=== PATIENT | female | born 1940 | race Caucasian/White ===

== ENCOUNTER 2020-02-01 18:29 | Inpatient (IN) ==
[2020-02-01] MEDS ORDERED: ONDANSETRON 4 MG/2 ML VIAL IV ONE (19:40)
[2020-02-01] MEDS ORDERED: MORPHINE 4 MG/1 ML VIAL IV ONE (19:40)
[2020-02-01] MEDS ORDERED: ONDANSETRON 4 MG/2 ML VIAL ONE (19:43)
[2020-02-01] MEDS ORDERED: MORPHINE 4 MG/1 ML VIAL ONE (19:44)
[2020-02-01 21:11] LABS: Basophils % 0.2 % (0.0-0.8); Eosinophils # 0.1 10*3/uL (0.0-0.87); Eosinophils % 0.6 % (0.00-10.9); Immature Granulocytes % 0.6 %; Immature Granulocytes Absolute 0.05 #; Lymphocytes # 0.7 10*3/uL (1.4-4.0); Lymphocytes % 8.2 % (21.3-54.2); Mean Corpuscular HGB Conc 34.4 GM/DL (32-36); Mean Platelet Volume 8.6 FL (9.6-12.0); Monocytes % 8.2 % (1.7-12.7); Neutrophils % 82.2 % (38.7-73.9); Platelet Count 172 T/CUMM (130-400); Red Blood Count 3.37 MC/CUMM (3.8-5.5); Red Cell Distribution Width 11.7 % (9.3-17.3); White Blood Count 8.3 T/CUMM (4-12)
[2020-02-01 21:22] LABS: PT Patient Result 10.6 SECS (9.8-11.9)
[2020-02-01 21:23] LABS: Calcium 8.8 MG/DL (8.5-10.1)
[2020-02-01] MEDS ORDERED: ACETAMINOPHEN 325 MG TABLET PO PRN (22:13)
[2020-02-01] MEDS ORDERED: ONDANSETRON 4 MG/2 ML VIAL IV PRN (22:13)
[2020-02-01] MEDS: DOCUSATE SODIUM 100 MG CAPSULE PO SCH (23:27)
[2020-02-01] MEDS: SODIUM CHLORIDE 0.45% 1,000 ML IV SCH (23:28)
[2020-02-02] MEDS: MORPHINE 4 MG/1 ML VIAL IV PRN ×2 (01:23→08:33)
[2020-02-02] MEDS: SODIUM CHLORIDE 0.45% 1,000 ML IV SCH (08:13)
[2020-02-02] MEDS ORDERED: propofoL 200 MG/20 ML VIAL IV ONE (09:43)
[2020-02-02] MEDS ORDERED: BUPIVACAINE SPINAL 0.75% 2 ML AMP SPINAL ONE (09:43)
[2020-02-02] MEDS ORDERED: KETAMINE 500 MG/10 ML VIAL ONE (09:43)
[2020-02-02] MEDS ORDERED: LIDOCAINE 2% 5 ML VIAL ONE (09:43)
[2020-02-02] MEDS ORDERED: HYDROmorphone 2 MG/1 ML VIAL ONE (09:47)
[2020-02-02] MEDS ORDERED: ceFAZolin 1,000 MG in SYRINGE 1 EACH IV ONE (10:00)
[2020-02-02] MEDS ORDERED: BISACODYL 10 MG SUPP RECTAL PRN (10:21)
[2020-02-02] MEDS ORDERED: MAGNESIUM HYDROXIDE SUSP 30 ML UDCUP PO PRN (10:21)
[2020-02-02] MEDS ORDERED: LACTULOSE 20 GM/30 ML UDCUP PO PRN (10:21)
[2020-02-02] MEDS ORDERED: diphenhydrAMINE CAP 25 MG CAPSULE PO PRN (10:21)
[2020-02-02] MEDS ORDERED: MORPHINE 4 MG/1 ML VIAL IV PRN ×2 (10:23→10:39)
[2020-02-02] MEDS ORDERED: LACTATED RINGERS 1,000 ML IV ONE (10:48)
[2020-02-02] MEDS ORDERED: DEXAMETHASONE 4 MG/1 ML VIAL ONE (10:48)
[2020-02-02] MEDS ORDERED: ONDANSETRON 4 MG/2 ML VIAL ONE (10:48)
[2020-02-02] MEDS ORDERED: TUBERCULIN SKIN TEST 0.1 ML SYRINGE INTRADERM ONE (14:36)
[2020-02-02] MEDS: PANTOPRAZOLE 40 MG TABLET PO SCH (15:00)
[2020-02-02] MEDS: DOCUSATE SODIUM 100 MG CAPSULE PO SCH ×2 (15:00→20:23)
[2020-02-02] MEDS: LACTATED RINGERS 1,000 ML IV SCH (15:00)
[2020-02-02] MEDS: ceFAZolin 1,000 MG in SYRINGE 1 EACH IV SCH ×2 (16:58→23:52)
[2020-02-03] MEDS: FONDAPARINUX 2.5 MG/0.5 ML SYRINGE SUBCUT SCH (05:20)
[2020-02-03 06:20] LABS: Basophils % 0.1 % (0.0-0.8); Eosinophils # 0.2 10*3/uL (0.0-0.87); Hematocrit 27.7 VOL% (35.7-47.0); Hemoglobin 9.8 GM/DL (12.0-16.0); Immature Granulocytes % 0.4 %; Immature Granulocytes Absolute 0.03 #; Lymphocytes # 0.6 10*3/uL (1.4-4.0); Lymphocytes % 8.1 % (21.3-54.2); Mean Corpuscular HGB Conc 35.4 GM/DL (32-36); Monocytes % 8.1 % (1.7-12.7); Neutrophils % 81.3 % (38.7-73.9); Platelet Count 173 T/CUMM (130-400); Red Blood Count 2.98 MC/CUMM (3.8-5.5); Red Cell Distribution Width 11.4 % (9.3-17.3); White Blood Count 7.6 T/CUMM (4-12)
[2020-02-03 06:40] LABS: Calcium 8.2 MG/DL (8.5-10.1); Osmolality,Calculated 265.2 MOS/KG (273-304)
[2020-02-03] MEDS: LACTATED RINGERS 1,000 ML IV SCH (07:28)
[2020-02-03] MEDS: ceFAZolin 1,000 MG in SYRINGE 1 EACH IV SCH (09:04)
[2020-02-03] MEDS: DOCUSATE SODIUM 100 MG CAPSULE PO SCH ×2 (09:04→20:23)
[2020-02-03] MEDS: PANTOPRAZOLE 40 MG TABLET PO SCH (09:04)
[2020-02-04] MEDS: FONDAPARINUX 2.5 MG/0.5 ML SYRINGE SUBCUT SCH (06:07)
[2020-02-04 06:23] LABS: Basophils % 0.4 % (0.0-0.8); Eosinophils # 0.1 10*3/uL (0.0-0.87); Eosinophils % 1.7 % (0.00-10.9); Hematocrit 31.8 VOL% (35.7-47.0); Immature Granulocytes % 0.6 %; Immature Granulocytes Absolute 0.03 #; Lymphocytes # 0.5 10*3/uL (1.4-4.0); Lymphocytes % 9.9 % (21.3-54.2); Mean Corpuscular HGB Conc 34.6 GM/DL (32-36); Mean Corpuscular Volume 93.5 FL (87-102); Mean Platelet Volume 8.9 FL (9.6-12.0); Monocytes % 11.3 % (1.7-12.7); Neutrophils % 76.1 % (38.7-73.9); Platelet Count 169 T/CUMM (130-400); Red Cell Distribution Width 11.6 % (9.3-17.3); White Blood Count 4.8 T/CUMM (4-12)
[2020-02-04] MEDS: LACTATED RINGERS 1,000 ML IV SCH (07:39)
[2020-02-04] MEDS: PANTOPRAZOLE 40 MG TABLET PO SCH (09:24)
[2020-02-04] MEDS: DOCUSATE SODIUM 100 MG CAPSULE PO SCH (09:25)
[2020-02-04 12:59] VITALS: BP 115/65
== END 2020-02-04 12:58 | disposition swing bed (61) | DRG 482 ==
LOC: N.ED 18:29 → N.EDINP 20:24 → N.3E 20:46
PROVIDERS: ADMIT Family Medicine; ATTEND Family Medicine

== ENCOUNTER 2020-12-01 13:16 | Inpatient (IN) ==
[2020-12-01] MEDS ORDERED: ONDANSETRON 4 MG/2 ML VIAL IV STA (13:35)
[2020-12-01] MEDS ORDERED: SODIUM CHLORIDE 0.9% 500 ML IV STA (13:35)
[2020-12-01 15:00] LABS: Calcium 8.7 MG/DL (8.5-10.1); Osmolality,Calculated 263.7 MOS/KG (273-304); Potassium 3.9 MMOL/L (3.5-5.1)
[2020-12-01] MEDS ORDERED: ACETAMINOPHEN 325 MG TABLET PO PRN (16:02)
[2020-12-01] MEDS ORDERED: BISACODYL 5 MG TABLET PO PRN (16:03)
[2020-12-01] MEDS ORDERED: MORPHINE 2 MG/1 ML SYRINGE IV PRN ×2 (16:03)
[2020-12-01] MEDS ORDERED: ALBUTEROL/IPRATROPIUM 3 ML NEB RESP TX PRN (16:03)
[2020-12-01] MEDS ORDERED: LACTATED RINGERS 1,000 ML IV SCH (16:30)
[2020-12-01 17:18] LABS: Basophils % 0.5 % (0.0-0.8); Eosinophils # 0.1 10*3/uL (0.0-0.87); Eosinophils % 0.9 % (0.00-10.9); Hemoglobin 9.4 GM/DL (12.0-16.0); Immature Granulocytes % 0.9 %; Immature Granulocytes Absolute 0.05 #; Lymphocytes # 0.4 10*3/uL (1.4-4.0); Lymphocytes % 6.8 % (21.3-54.2); Mean Corpuscular HGB Conc 32.4 GM/DL (32-36); Mean Corpuscular Volume 92.7 FL (87-102); Mean Platelet Volume 9.1 FL (9.6-12.0); Neutrophils % 78.9 % (38.7-73.9); Platelet Count 312 T/CUMM (130-400); Red Blood Count 3.13 MC/CUMM (3.8-5.5); Red Cell Distribution Width 12.1 % (9.3-17.3); White Blood Count 5.8 T/CUMM (4-12)
[2020-12-01] MEDS: SODIUM CHLORIDE 0.9% 1,000 ML IV SCH (19:21)
[2020-12-01] MEDS: PIPERACILLIN/TAZOBACTAM 3,375 MG in SODIUM CHLORIDE 0.9% 100 ML IV SCH (19:21)
[2020-12-01] MEDS: ALBUTEROL/IPRATROPIUM 3 ML NEB RESP TX SCH (19:51)
[2020-12-01] MEDS: ONDANSETRON 4 MG/2 ML VIAL IV PRN ×2 (20:05→23:16)
[2020-12-01 20:11] LABS: Hematocrit 26.2 VOL% (35.7-47.0); Hemoglobin 8.5 GM/DL (12.0-16.0)
[2020-12-02] MEDS: PIPERACILLIN/TAZOBACTAM 3,375 MG in SODIUM CHLORIDE 0.9% 100 ML IV SCH ×3 (00:14→17:48)
[2020-12-02] MEDS: ALBUTEROL/IPRATROPIUM 3 ML NEB RESP TX SCH ×4 (01:35→22:12)
[2020-12-02] MEDS: SODIUM CHLORIDE 0.9% 1,000 ML IV SCH ×4 (05:30→19:26)
[2020-12-02 06:44] LABS: Basophils # 0.1 10*3/uL (0.0-0.2); Basophils % 0.9 % (0.0-0.8); Eosinophils # 0.2 10*3/uL (0.0-0.87); Eosinophils % 2.6 % (0.00-10.9); Hematocrit 26.1 VOL% (35.7-47.0); Hemoglobin 8.2 GM/DL (12.0-16.0); Immature Granulocytes % 1.1 %; Immature Granulocytes Absolute 0.07 #; Lymphocytes # 0.6 10*3/uL (1.4-4.0); Lymphocytes % 8.7 % (21.3-54.2); Mean Corpuscular HGB Conc 31.4 GM/DL (32-36); Mean Corpuscular Volume 95.3 FL (87-102); Mean Platelet Volume 8.8 FL (9.6-12.0); Neutrophils % 73.7 % (38.7-73.9); Platelet Count 248 T/CUMM (130-400); Red Blood Count 2.74 MC/CUMM (3.8-5.5); Red Cell Distribution Width 12.2 % (9.3-17.3); White Blood Count 6.6 T/CUMM (4-12)
[2020-12-02 06:54] LABS: Calcium 8.7 MG/DL (8.5-10.1); Osmolality,Calculated 264.2 MOS/KG (273-304); Potassium 4.1 MMOL/L (3.5-5.1)
[2020-12-02] MEDS: PANTOPRAZOLE 40 MG VIAL IV SCH (08:33)
[2020-12-02 10:06] LABS: Hematocrit 25.7 VOL% (35.7-47.0); Hemoglobin 8.2 GM/DL (12.0-16.0)
[2020-12-02] MEDS ORDERED: HYDROmorphone 2 MG/1 ML VIAL IV PRN (11:14)
[2020-12-02 16:11] LABS: Hematocrit 25.4 VOL% (35.7-47.0); Hemoglobin 8.1 GM/DL (12.0-16.0)
[2020-12-02] MEDS: ONDANSETRON 4 MG/2 ML VIAL IV PRN (19:22)
[2020-12-03] MEDS: PIPERACILLIN/TAZOBACTAM 3,375 MG in SODIUM CHLORIDE 0.9% 100 ML IV SCH ×4 (00:42→16:44)
[2020-12-03] MEDS: ALBUTEROL/IPRATROPIUM 3 ML NEB RESP TX SCH ×4 (01:00→21:59)
[2020-12-03 06:14] LABS: Basophils % 0.6 % (0.0-0.8); Eosinophils # 0.2 10*3/uL (0.0-0.87); Eosinophils % 3.2 % (0.00-10.9); Hematocrit 27.7 VOL% (35.7-47.0); Hemoglobin 8.7 GM/DL (12.0-16.0); Immature Granulocytes % 0.6 %; Immature Granulocytes Absolute 0.04 #; Lymphocytes # 1.1 10*3/uL (1.4-4.0); Lymphocytes % 15.9 % (21.3-54.2); Mean Corpuscular HGB Conc 31.4 GM/DL (32-36); Mean Corpuscular Volume 94.9 FL (87-102); Monocytes % 9.8 % (1.7-12.7); Neutrophils % 69.9 % (38.7-73.9); Platelet Count 273 T/CUMM (130-400); Red Blood Count 2.92 MC/CUMM (3.8-5.5); Red Cell Distribution Width 12.2 % (9.3-17.3)
[2020-12-03] MEDS: SODIUM CHLORIDE 0.9% 1,000 ML IV SCH ×3 (07:05→16:50)
[2020-12-03] MEDS: PANTOPRAZOLE 40 MG VIAL IV SCH ×2 (08:40→11:08)
[2020-12-04] MEDS: SODIUM CHLORIDE 0.9% 1,000 ML IV SCH ×3 (00:15→19:39)
[2020-12-04] MEDS: PIPERACILLIN/TAZOBACTAM 3,375 MG in SODIUM CHLORIDE 0.9% 100 ML IV SCH ×3 (01:00→17:07)
[2020-12-04] MEDS: ALBUTEROL/IPRATROPIUM 3 ML NEB RESP TX SCH ×4 (02:42→21:30)
[2020-12-04] MEDS ORDERED: HEPARIN 5,000 UNIT/1 ML VIAL IV ONE (06:28)
[2020-12-04] MEDS ORDERED: HEPARIN DRIP 25,000 UNITS/500 ML PREMIX IV SCH ×2 (06:30→16:50)
[2020-12-04 06:47] LABS: Basophils % 0.6 % (0.0-0.8); Eosinophils # 0.2 10*3/uL (0.0-0.87); Eosinophils % 4.6 % (0.00-10.9); Hematocrit 25.5 VOL% (35.7-47.0); Hemoglobin 8.2 GM/DL (12.0-16.0); Immature Granulocytes % 0.6 %; Immature Granulocytes Absolute 0.03 #; Lymphocytes # 0.7 10*3/uL (1.4-4.0); Lymphocytes % 14.6 % (21.3-54.2); Mean Corpuscular HGB Conc 32.2 GM/DL (32-36); Mean Corpuscular Volume 93.1 FL (87-102); Mean Platelet Volume 8.3 FL (9.6-12.0); Neutrophils % 70.6 % (38.7-73.9); Platelet Count 218 T/CUMM (130-400); Red Blood Count 2.74 MC/CUMM (3.8-5.5); Red Cell Distribution Width 12.3 % (9.3-17.3); White Blood Count 4.8 T/CUMM (4-12)
[2020-12-04] MEDS: PANTOPRAZOLE 40 MG VIAL IV SCH (11:30)
[2020-12-04 12:18] LABS: Hematocrit 26.7 VOL% (35.7-47.0); Hemoglobin 8.6 GM/DL (12.0-16.0)
[2020-12-04 16:05] LABS: Hematocrit 24.3 VOL% (35.7-47.0); Hemoglobin 7.8 GM/DL (12.0-16.0)
[2020-12-04 23:18] LABS: Hematocrit 22.7 VOL% (35.7-47.0); Hemoglobin 7.4 GM/DL (12.0-16.0)
[2020-12-05] MEDS: ALBUTEROL/IPRATROPIUM 3 ML NEB RESP TX SCH ×4 (01:47→19:40)
[2020-12-05] MEDS: SODIUM CHLORIDE 0.9% 1,000 ML IV SCH ×3 (03:21→18:32)
[2020-12-05] MEDS: PIPERACILLIN/TAZOBACTAM 3,375 MG in SODIUM CHLORIDE 0.9% 100 ML IV SCH ×2 (03:22→08:48)
[2020-12-05 05:37] LABS: Basophils % 0.4 % (0.0-0.8); Eosinophils # 0.4 10*3/uL (0.0-0.87); Eosinophils % 7.8 % (0.00-10.9); Hematocrit 22.6 VOL% (35.7-47.0); Hemoglobin 7.4 GM/DL (12.0-16.0); Immature Granulocytes % 0.7 %; Immature Granulocytes Absolute 0.03 #; Lymphocytes # 1.2 10*3/uL (1.4-4.0); Lymphocytes % 25.4 % (21.3-54.2); Mean Corpuscular HGB Conc 32.7 GM/DL (32-36); Mean Corpuscular Volume 92.2 FL (87-102); Mean Platelet Volume 8.5 FL (9.6-12.0); Monocytes % 9.5 % (1.7-12.7); Neutrophils % 56.2 % (38.7-73.9); Platelet Count 218 T/CUMM (130-400); Red Blood Count 2.45 MC/CUMM (3.8-5.5); Red Cell Distribution Width 12.1 % (9.3-17.3); White Blood Count 4.6 T/CUMM (4-12)
[2020-12-05] MEDS: PANTOPRAZOLE 40 MG VIAL IV SCH (08:47)
[2020-12-05 11:07] LABS: Basophils % 0.6 % (0.0-0.8); Eosinophils # 0.2 10*3/uL (0.0-0.87); Eosinophils % 3.6 % (0.00-10.9); Hematocrit 23.2 VOL% (35.7-47.0); Hemoglobin 7.6 GM/DL (12.0-16.0); Immature Granulocytes % 0.9 %; Immature Granulocytes Absolute 0.04 #; Lymphocytes # 0.9 10*3/uL (1.4-4.0); Lymphocytes % 18.8 % (21.3-54.2); Mean Corpuscular HGB Conc 32.8 GM/DL (32-36); Mean Corpuscular Volume 92.4 FL (87-102); Mean Platelet Volume 8.4 FL (9.6-12.0); Monocytes % 9.4 % (1.7-12.7); Neutrophils % 66.7 % (38.7-73.9); Platelet Count 204 T/CUMM (130-400); Red Blood Count 2.51 MC/CUMM (3.8-5.5); Red Cell Distribution Width 12.3 % (9.3-17.3); White Blood Count 4.7 T/CUMM (4-12)
[2020-12-05] MEDS ORDERED: RIVAROXABAN 20 MG TABLET PO ONE (15:46)
[2020-12-06] MEDS: ALBUTEROL/IPRATROPIUM 3 ML NEB RESP TX SCH ×3 (01:00→13:10)
[2020-12-06] MEDS: SODIUM CHLORIDE 0.9% 1,000 ML IV SCH ×2 (03:35→16:06)
[2020-12-06] MEDS ORDERED: RIVAROXABAN 20 MG TABLET PO SCH (08:00)
[2020-12-06] MEDS ORDERED: MULTIVITAMIN (CENTRUM) TABLET PO SCH (09:00)
[2020-12-06] MEDS: PANTOPRAZOLE 40 MG VIAL IV SCH (09:07)
[2020-12-06 11:45] LABS: Basophils % 0.7 % (0.0-0.8); Eosinophils # 0.2 10*3/uL (0.0-0.87); Eosinophils % 2.8 % (0.00-10.9); Hematocrit 24.5 VOL% (35.7-47.0); Hemoglobin 7.9 GM/DL (12.0-16.0); Immature Granulocytes Absolute 0.06 #; Lymphocytes % 16.6 % (21.3-54.2); Mean Corpuscular HGB Conc 32.2 GM/DL (32-36); Mean Corpuscular Volume 93.5 FL (87-102); Mean Platelet Volume 8.4 FL (9.6-12.0); Monocytes % 8.2 % (1.7-12.7); Neutrophils % 70.7 % (38.7-73.9); Platelet Count 234 T/CUMM (130-400); Red Blood Count 2.62 MC/CUMM (3.8-5.5); Red Cell Distribution Width 12.4 % (9.3-17.3); White Blood Count 6.1 T/CUMM (4-12)
[2020-12-06 12:54] VITALS: BP 150/65
== END 2020-12-06 16:50 | disposition home or self-care (01) | DRG 815 ==
LOC: N.ED 13:16 → N.EDINP 16:02 → N.CC 18:42 → N.4E 12-04 05:10
PROVIDERS: ADMIT Student in an Organized Health Care Education/Training Program; ATTEND Student in an Organized Health Care Education/Training Program

== ENCOUNTER 2021-06-01 10:49 | Inpatient (IN) ==
[2021-06-01] MEDS ORDERED: ONDANSETRON 4 MG/2 ML VIAL IV STA (13:22)
[2021-06-01] MEDS ORDERED: MORPHINE 2 MG/1 ML SYRINGE IV STA ×2 (13:22→15:20)
[2021-06-01] MEDS ORDERED: MAGNESIUM HYDROXIDE SUSP 30 ML UDCUP PO PRN (15:23)
[2021-06-01] MEDS ORDERED: MORPHINE 2 MG/1 ML SYRINGE IV PRN (15:23)
[2021-06-01 15:48] LABS: Basophils % 0.4 % (0.0-0.8); Eosinophils % 0.5 % (0.00-10.9); Hematocrit 34.1 VOL% (35.7-47.0); Hemoglobin 10.8 GM/DL (12.0-16.0); Immature Granulocytes % 0.2 %; Immature Granulocytes Absolute 0.02 #; Lymphocytes # 0.6 10*3/uL (1.4-4.0); Mean Corpuscular HGB Conc 31.7 GM/DL (32-36); Mean Corpuscular Volume 92.7 FL (87-102); Mean Platelet Volume 9.1 FL (9.6-12.0); Monocytes % 9.1 % (1.7-12.7); Neutrophils % 82.8 % (38.7-73.9); Platelet Count 191 T/CUMM (130-400); Red Blood Count 3.68 MC/CUMM (3.8-5.5); Red Cell Distribution Width 12.8 % (9.3-17.3); White Blood Count 8.4 T/CUMM (4-12)
[2021-06-01 15:59] LABS: INR 1.2; PT Patient Result 13.4 SECS (10.5-12.0); Partial Thromboplastin Time 34.3 SECS (23.8-32.1)
[2021-06-01] MEDS: SODIUM CHLORIDE 0.9% 1,000 ML IV SCH (16:00)
[2021-06-01 16:17] LABS: Albumin 3.3 G/DL (3.4-5.0); Bilirubin,Total 0.5 MG/DL (0.20-1.00); Calcium 8.8 MG/DL (8.5-10.1); Osmolality,Calculated 272.7 MOS/KG (273-304); Total Protein 6.4 G/DL (6.4-8.2)
[2021-06-01 16:38] LABS: Bilirubin,Urine Negative (Negative); Glucose,Urine (UA) Negative (Negative); Ketones,Urine Negative (Negative); Nitrite,Urine Negative (Negative); Protein,Urine Negative (Negative); RBC,Urine 2 /HPF (0-4); Squamous Epithelial Cell,Urine Occasional /HPF (0-10); Urine Appearance Clear (Clear); Urine Color Yellow (Yellow); Urine pH 6.5 (4.5-8.0)
[2021-06-01 16:39] LABS: Blood, Urine Trace mg/dL (Negative); Urine Urobilinogen 0.2 eU/dL (<2.0)
[2021-06-01] MEDS: ONDANSETRON 4 MG/2 ML VIAL IV PRN (18:34)
[2021-06-02] MEDS: SODIUM CHLORIDE 0.9% 1,000 ML IV SCH ×3 (04:23→21:06)
[2021-06-02] MEDS ORDERED: diphenhydrAMINE 50 MG/1 ML VIAL IV PRN (06:38)
[2021-06-02] MEDS ORDERED: ONDANSETRON 4 MG/2 ML VIAL IV PRN (06:38)
[2021-06-02] MEDS ORDERED: PROMETHAZINE INJ 25 MG in SODIUM CHLORIDE 0.9% 50 ML IV PRN (06:38)
[2021-06-02] MEDS ORDERED: MEPERIDINE 25 MG/1 ML VIAL IV PRN (06:38)
[2021-06-02] MEDS ORDERED: BUPIVACAINE MPF 0.5% 30 ML VIAL ONE (06:44)
[2021-06-02] MEDS ORDERED: MIDAZOLAM 2 MG/2 ML VIAL ONE (06:44)
[2021-06-02] MEDS ORDERED: buprenorphine HCL 0.3 MG/ML VIAL ONE (06:44)
[2021-06-02] MEDS ORDERED: DEXMEDETOMIDINE 200 MCG/2 ML VIAL ONE (06:44)
[2021-06-02] MEDS ORDERED: fentaNYL 100 MCG/2 ML VIAL ONE (07:01)
[2021-06-02] MEDS ORDERED: LIDOCAINE 50 MG/5 ML SYRINGE ONE (07:09)
[2021-06-02] MEDS ORDERED: DEXAMETHASONE 4 MG/1 ML VIAL ONE ×2 (07:09→07:51)
[2021-06-02] MEDS ORDERED: PROMETHAZINE 25 MG/1 ML VIAL ONE (07:51)
[2021-06-02] MEDS ORDERED: HYDROmorphone 1 MG/1 ML SYRINGE ONE (08:04)
[2021-06-02] MEDS ORDERED: BACITRACIN OINT 0.9 GM PACK TOP ONE (08:08)
[2021-06-02] MEDS ORDERED: LACTATED RINGERS 1,000 ML IV ONE (08:51)
[2021-06-02] MEDS ORDERED: SEVOFLURANE 1 UNIT/15 MINUTE INH ONE (08:51)
[2021-06-02] MEDS: ONDANSETRON 4 MG/2 ML VIAL IV PRN (09:15)
[2021-06-02] MEDS ORDERED: PROMETHAZINE 25 MG/1 ML VIAL IM PRN (10:22)
[2021-06-02] MEDS ORDERED: SCOPOLAMINE 1.5 MG PATCH TRANSDERM SCH (10:22)
[2021-06-02] MEDS: PANTOPRAZOLE 40 MG TABLET PO SCH (11:34)
[2021-06-02] MEDS: DOCUSATE SODIUM 100 MG CAPSULE PO SCH ×2 (11:34→21:06)
[2021-06-03 06:14] LABS: Basophils % 0.3 % (0.0-0.8); Eosinophils # 0.1 10*3/uL (0.0-0.87); Eosinophils % 0.7 % (0.00-10.9); Hematocrit 28.3 VOL% (35.7-47.0); Immature Granulocytes % 0.3 %; Immature Granulocytes Absolute 0.02 #; Lymphocytes % 12.9 % (21.3-54.2); Mean Corpuscular HGB Conc 31.8 GM/DL (32-36); Mean Corpuscular Volume 91.9 FL (87-102); Mean Platelet Volume 9.6 FL (9.6-12.0); Monocytes % 11.5 % (1.7-12.7); Neutrophils % 74.3 % (38.7-73.9); Platelet Count 169 T/CUMM (130-400); Red Blood Count 3.08 MC/CUMM (3.8-5.5); Red Cell Distribution Width 12.6 % (9.3-17.3); White Blood Count 7.7 T/CUMM (4-12)
[2021-06-03 06:33] LABS: Calcium 7.8 MG/DL (8.5-10.1); Osmolality,Calculated 273.5 MOS/KG (273-304); Potassium 3.5 MMOL/L (3.5-5.1)
[2021-06-03] MEDS ORDERED: ACETAMINOPHEN 500 MG TABLET PO PRN (07:30)
[2021-06-03] MEDS: DOCUSATE SODIUM 100 MG CAPSULE PO SCH ×2 (09:17→20:52)
[2021-06-03] MEDS: RIVAROXABAN 10 MG TABLET PO SCH (09:17)
[2021-06-03] MEDS: PANTOPRAZOLE 40 MG TABLET PO SCH (09:17)
[2021-06-03] MEDS: ACETAMINOPHEN 500 MG TABLET PO PRN ×2 (09:32→16:25)
[2021-06-03] MEDS: SODIUM CHLORIDE 0.9% 1,000 ML IV SCH (10:34)
[2021-06-04 04:49] LABS: Basophils % 0.7 % (0.0-0.8); Eosinophils # 0.2 10*3/uL (0.0-0.87); Eosinophils % 3.4 % (0.00-10.9); Hematocrit 29.1 VOL% (35.7-47.0); Hemoglobin 9.3 GM/DL (12.0-16.0); Immature Granulocytes % 0.2 %; Immature Granulocytes Absolute 0.01 #; Lymphocytes # 0.7 10*3/uL (1.4-4.0); Lymphocytes % 12.6 % (21.3-54.2); Mean Corpuscular Volume 91.8 FL (87-102); Mean Platelet Volume 9.6 FL (9.6-12.0); Neutrophils % 73.1 % (38.7-73.9); Platelet Count 170 T/CUMM (130-400); Red Blood Count 3.17 MC/CUMM (3.8-5.5); Red Cell Distribution Width 12.6 % (9.3-17.3); White Blood Count 5.9 T/CUMM (4-12)
[2021-06-04] MEDS: PANTOPRAZOLE 40 MG TABLET PO SCH (08:00)
[2021-06-04] MEDS: RIVAROXABAN 10 MG TABLET PO SCH (08:00)
[2021-06-04] MEDS: DOCUSATE SODIUM 100 MG CAPSULE PO SCH (08:00)
[2021-06-04 11:57] VITALS: BP 139/69
== END 2021-06-04 14:24 | disposition home or self-care (01) | DRG 481 ==
LOC: N.ED 10:49 → N.3E 15:23
PROVIDERS: ADMIT Family Medicine; ATTEND Family Medicine